=== PATIENT | female | born 1975 ===

== ENCOUNTER 2023-01-04 12:23 | Emergency (ER) | payer SELFPAY ==
[2023-01-04 14:17] LABS: SARS-CoV-2 NAA Rapid Test DETECTED (NotDetected)
== END 2023-01-04 14:29 | disposition home or self-care (01) ==
LOC: ERS 12:23
DX: U07.1 COVID-19 (principal); Z20.822 Contact with and (suspected) exposure to COVID-19
CPT/HCPCS: 99283